=== PATIENT | male | born 1990 | race African-American/Black ===

== ENCOUNTER 2021-01-30 22:29 | Emergency (ER) | payer OTHER ==
--- NOTE | 2021-01-31 01:06 | ED Physician Documentation ---
History of Present Illness - Stated complaint Stated Complaint: ABD PX - Chief complaint Chief Complaint: General - History obtained from History obtained from: Patient - Additonal information Additional information: Patient comes emergency department chief complaint of excess stooling for the last several days. Patient states that he was traveling 5 days ago and that a bottle of shaving cream spilled in his bag. He thought it might have contaminated his food and caused some digestive upset. He states that he began to have very frequent stools, about 6 times a day, and he is concerned that nilson ething is wrong with his bowels. He states that the stools of normal consistency, but he keeps feeling the urge to go. He states that sometimes the bowel movements are of normal size and sometimes they are of smaller size. No diarrhea. No fevers. Patient has had some chills intermittently and had an episode of right flank and back pain yesterday. He states this resolved on its own. No other complaints at this time. No abdominal pain. No dysuria. Review of Systems Ten Systems: 10 systems reviewed and negative Constitutional: reports: Reviewed and negative Eyes: reports: Reviewed and negative Ears: reports: Reviewed and negative Nose: reports: Reviewed and negative Throat: reports: Reviewed and negative Cardiac: reports: Reviewed and negative Respiratory: reports: Reviewed and negative GI: reports: Other (Stool changes). denies: Abdominal Pain, Nausea : reports: Reviewed and negative. denies: Dysuria Skin: reports: Reviewed and negative Musculoskeletal: reports: Reviewed and negative Neurologic: reports: Reviewed and negative Psychiatric: reports: Reviewed and negative Endocrine: reports: Reviewed and negative Immunocompromised: reports: Reviewed and negative PD PAST MEDICAL HISTORY - Past Medical History Past Medical History: No Cardiovascular: None Respiratory: None Neuro: None Endocrine/Autoimmune: None GI: None : None HEENT: None Psych: None Musculoskeletal: None Derm: None - Past Surgical History Past Surgical History: No - Present Medications Home Medications: Ambulatory Orders Medication Instructions Recorded Confirmed No Known Home Medications 01/30/21 01/30/21 - Allergies Allergies/Adverse Reactions: Allergies Allergy/AdvReac Type Severity Reaction Status Date / Time No Known Drug Allergies Allergy Verified 01/31/21 00:01 - Social History Does the pt smoke?: No Smoking Status: Never smoker Does the pt drink ETOH?: No Does the pt have substance abuse?: No - Immunizations Immunizations are current?: Yes - POLST Patient has POLST: No PD ED PE NORMAL - Vitals Vital signs reviewed: Yes - General General: Alert and oriented X 3, No acute distress, Well developed/nourished - HEENT HEENT: Atraumatic, PERRL, EOMI, Moist mucous membranes - Neck Neck: Supple, no meningeal sign - Cardiac Cardiac: RRR, No murmur - Respiratory Respiratory: No respiratory distress, Clear bilaterally - Abdomen Abdomen: Soft, Non tender, Non distended - Back Back: No CVA TTP, No spinal TTP - Derm Derm: Normal color, Warm and dry, No rash - Extremities Extremities: No deformity, No edema, No calf tenderness / cord - Neuro Neuro: Alert and oriented X 3 - Psych Psych: Normal mood, Normal affect Results - Vitals Vitals: Vital Signs - 24 hr 01/30/21 01/31/21 01/31/21 22:51 00:14 01:22 Temperature 36.6 C 36.6 C Heart Rate 60 60 Respiratory 16 16 18 Rate Blood Pressure 141/87 H 149/97 H O2 Saturation 100 100 Oxygen O2 Source Room air - Labs Labs: Laboratory Tests 01/31/21 01:10 Urine Color YELLOW Urine Clarity CLEAR Urine pH 6.0 Ur Specific [place] 1.015 Urine Protein NEGATIVE Urine Glucose (UA) NEGATIVE Urine Ketones NEGATIVE Urine Occult Blood NEGATIVE Urine Nitrite NEGATIVE Urine Bilirubin NEGATIVE Urine Urobilinogen 0.2 (NORMAL) Ur Leukocyte Esterase NEGATIVE Ur Microscopic Review NOT INDICATED Urine Culture Comments NOT INDICATED PD MEDICAL DECISION MAKING - ED course Complexity details: reviewed results, re-evaluated patient, considered differential, d/w patient ED course: I discussed with the patient the really not sure what to make of his symptoms. He does not seem to have anything emergent going on, but I have sent both urine and stool samples for analysis. Urinalysis was negative. The patient produced enough stool to test for norovirus, but is advised [place] wishes any further evaluation. I discussed with him that he is making normal stool but just more frequently and that I feel this is most likely going to blow over on its own. We have discussed dietary considerations and the usual indications for return. Departure - Departure Disposition: 01 Home, Self Care Clinical Impression: Altered bowel habits Condition: Stable Instructions: ED IBS Comments: Your urinalysis is negative. Your stool studies are pending at this time, and will not be back tonight. Most likely, given that you do not have actual diarrhea or otherwise feeling fairly well, your symptoms will blow over on their own, given time. Please eat a high-fiber diet and drink plenty of fluids. Please follow-up with your primary care physician for further concerns regarding your symptoms. Discharge Date/Time: 01/31/21 01:43
[2021-01-31 01:14] LABS: BILIRUBIN,URINE NEGATIVE (NEGATIVE); GLUCOSE, URINE (UA) NEGATIVE (NEGATIVE); KETONES,URINE (UA) NEGATIVE (NEGATIVE); LEUKOCYTE ESTERASE, URINE NEGATIVE (NEGATIVE); NITRITE,URINE NEGATIVE (NEGATIVE); OCCULT BLOOD,URINE NEGATIVE (NEGATIVE); PROTEIN,URINE NEGATIVE (NEGATIVE); UROBILINOGEN,URINE 0.2 (NORMAL) E.U./dL (NORMAL)
[2021-01-31 01:21] LABS: CLARITY,URINE CLEAR (CLEAR)
[2021-01-31 01:23] VITALS: BP 149/97
== END 2021-01-31 01:43 | disposition home or self-care (01) ==
LOC: ED 22:29
DX: R19.4 Change in bowel habit (principal)
CPT/HCPCS: 81001; 81003; 87045; 87046; 87086; 87798; 99282; 99283

== ENCOUNTER 2021-02-05 20:40 | Emergency (ER) | payer OTHER ==
[2021-02-05 20:55] LABS: BASOPHILS % (AUTO) 0.9 %; EOSINOPHILS # (AUTO) 0.1 10^3/uL (0.0-0.7); EOSINOPHILS % (AUTO) 1.1 %; HGB - HEMOGLOBIN 13.4 g/dL (14.0-18.0); LYMPHOCYTES # (AUTO) 2.2 10^3/uL (1.5-3.5); LYMPHOCYTES % (AUTO) 47.9 %; MEAN CORPUSCULAR HEMOGLOBIN 23.6 pg (27.0-31.0); MEAN CORPUSCULAR HGB CONC 30.5 g/dL (32.0-36.0); MEAN CORPUSCULAR VOLUME 77.5 fL (80.0-94.0); MEAN PLATELET VOLUME 9.9 fL (7.4-11.4); MONOCYTES # (AUTO) 0.4 10^3/uL (0.0-1.0); MONOCYTES % (AUTO) 7.8 %; NEUTROPHILS % (AUTO) 42.1 %; PLT - PLATELET COUNT 207 10^3/uL (130-450); RED BLOOD COUNT 5.68 10^6/uL (4.70-6.10); RED CELL DISTRIBUTION WIDTH 12.5 % (12.0-15.0); WHITE BLOOD COUNT 4.6 x10^3/uL (4.8-10.8)
[2021-02-05 21:09] LABS: ALBUMIN 4.6 g/dL (3.2-5.5); ALBUMIN/GLOBULIN RATIO 1.4 (1.0-2.2); BILIRUBIN,TOTAL 0.7 mg/dL (0.2-1.0); CALCIUM 9.7 mg/dL (8.5-10.3); CREATININE 1.2 mg/dL (0.6-1.2); POTASSIUM 3.9 mmol/L (3.5-5.0); TOTAL PROTEIN 7.9 g/dL (6.7-8.2)
[2021-02-05] MEDS ORDERED: IOPAMIDOL-300 100 ML VIAL ONE (21:15)
--- NOTE | 2021-02-05 21:15 | ED Physician Documentation ---
History of Present Illness - Stated complaint Stated Complaint: BOWEL PX - Chief complaint Chief Complaint: Abd Pain - Additonal information Additional information: 30-year-old male presents the emergency department for evaluation of painful defecation. He reports that about 1 week ago he had a few bouts of watery diarrhea over the last week he has been having multiple soft but not loose bowel movements a day up to 6. He states that he was trying to hold his bowel movements in because he did not want to defecate that much. Today as he was defecating he reports straining forcefully and feeling a pain radiating from his rectum down to the toes in his left leg. He denies any has been having melena or hematochezia. No history of similar in the past. He was seen in this ER on the for bowel irregularity. Stool and urine test ing was negative at that time. Patient denies any fevers or vomiting. No pertinent past surgical history of the abdomen. Review of Systems Constitutional: denies: Fever, Chills Eyes: reports: Reviewed and negative Nose: reports: Reviewed and negative Throat: reports: Reviewed and negative Cardiac: reports: Reviewed and negative Respiratory: reports: Reviewed and negative GI: reports: Diarrhea. denies: Abdominal Pain, Nausea, Vomiting, Hematemesis, Bloody / black stool : reports: Reviewed and negative Skin: reports: Reviewed and negative PD PAST MEDICAL HISTORY - Past Medical History Cardiovascular: None Respiratory: None Neuro: None Endocrine/Autoimmune: None GI: None : None HEENT: None Psych: None Musculoskeletal: None Derm: None - Past Surgical History Past Surgical History: No - Present Medications Home Medications: Ambulatory Orders Medication Instructions Recorded Confirmed polyethylene glycoL 3350 [Miralax] 17 gm PO DAILY PRN #1 bottle 02/05/21 - Allergies Allergies/Adverse Reactions: Allergies Allergy/AdvReac Type Severity Reaction Status Date / Time No Known Drug Allergies Allergy Verified 02/05/21 20:43 - Social History Does the pt smoke?: No Smoking Status: Never smoker Does the pt drink ETOH?: No Does the pt have substance abuse?: No - Immunizations Immunizations are current?: Yes - POLST Patient has POLST: No PD ED PE NORMAL - General General: Alert and oriented X 3, No acute distress - Neck Neck: Supple, no meningeal sign - Cardiac Cardiac: RRR, No murmur - Respiratory Respiratory: Clear bilaterally - Abdomen Abdomen: Normal bowel sounds, Soft, Non tender, Non distended - Rectal Rectal: Other (Chaperoned rectal exam reveals no obvious hemorrhoids or anal fissures. No perirectal tenderness elicited. Brown stool in the vault.) Results - Vitals Vitals: Vital Signs - 24 hr 02/05/21 20:43 Temperature 36.5 C Heart Rate 60 Respiratory 16 Rate Blood Pressure 140/98 H O2 Saturation 100 Oxygen O2 Source Room air - Labs Labs: Laboratory Tests 02/05/21 02/05/21 02/05/21 20:52 20:52 21:05 WBC 4.6 L RBC 5.68 Hgb 13.4 L Hct 44.0 MCV 77.5 L MCH 23.6 L MCHC 30.5 L RDW 12.5 Plt Count 207 MPV 9.9 Neut # (Auto) 2.0 Lymph # (Auto) 2.2 [place] # (Auto) 0.4 Eos # (Auto) 0.1 Baso # (Auto) 0.0 Absolute Nucleated RBC 0.00 Nucleated RBC % 0.0 Sodium 141 Potassium 3.9 Chloride 103 Carbon Dioxide 29 Anion Gap 9.0 BUN 12 Creatinine 1.2 Estimated GFR (MDRD) 87 L Glucose 83 Calcium 9.7 Total Bilirubin 0.7 AST 25 ALT 20 Alkaline Phosphatase 63 Total Protein 7.9 Albumin 4.6 Globulin 3.3 Albumin/Globulin Ratio 1.4 Lipase 40 Urine Color YELLOW Urine Clarity CLEAR Urine pH 7.0 Ur Specific [place] <=1.005 Urine Protein NEGATIVE Urine Glucose (UA) NEGATIVE Urine Ketones NEGATIVE Urine Occult Blood NEGATIVE Urine Nitrite NEGATIVE Urine Bilirubin NEGATIVE Urine Urobilinogen 0.2 (NORMAL) Ur Leukocyte Esterase NEGATIVE Ur Microscopic Review NOT INDICATED Urine Culture Comments NOT INDICATED - Rads (name of study) CT abd Radiology: Final report received (Generalized colonic obstipation on the right and left within the abdomen and pelvis. This extends into the rectum. No perirectal abscess, no perianal abscess is found.) PD MEDICAL DECISION MAKING - ED course Complexity details: reviewed results, d/w patient ED course: 30-year-old male presents the emergency department for evaluation of bowel irregularity and painful defecation. This began with a bout of diarrhea about 1 week ago. He reports that since then he has been trying to avoid pooping as he doesn't think he should be pooping this much in addition to that as he has been straining to have a bowel movement today he noted pain that radiated down his left leg. Screening labs are unremarkable. A CT of the abdomen does show significant obstipation in both the ascending and descending colon. There were no findings of perirectal or perianal abscess. CT findings were discussed with the patient at length. He has been avoiding ever having bowel movements and now seems constipated resulting in rectal pain. I will recommend that he fill prescription for MiraLAX and take once twice daily as directed till he has 3-4 watery bowel movements. Patient is to follow-up tomorrow with [facility]. Emergent return precautions were discussed for fevers, suddenly severe abdominal pain hematochezia or melena. Departure - Departure Disposition: 01 Home, Self Care Clinical Impression: Rectal pain Constipation Qualifiers: Constipation type: other constipation type Qualified Code(s): K59.09 - Other constipation Condition: Stable Record reviewed to determine appropriate education?: Yes Instructions: ED Constipation Prescriptions: polyethylene glycoL 3350 [Miralax] 17 gm PO DAILY PRN #1 bottle PRN Reason: Constipation Comments: Panchito you're seen in the ER today for irregular bowel movements over the last week as well as rectal pain that radiates down your leg with defecation. Your screening labs were essentially normal today. We did do a CAT scan of your belly that does show significant constipation in both your ascending and descending colon. Avoiding having bowel movements has likely worsened your constipation. I would like you to fill the prescription for the MiraLAX and take once or twice daily as directed until you have 3-4 watery bowel movements. I would expect that once you have some relief of your constipation this rectal pain that should improve. Please schedule follow-up with [facility] in the next 48 to 72 hours. Return to the ER if you have any fevers, if you have black or bloody bowel movements or suddenly severe or different abdominal pain.
[2021-02-05 21:16] LABS: BILIRUBIN,URINE NEGATIVE (NEGATIVE); GLUCOSE, URINE (UA) NEGATIVE (NEGATIVE); KETONES,URINE (UA) NEGATIVE (NEGATIVE); LEUKOCYTE ESTERASE, URINE NEGATIVE (NEGATIVE); NITRITE,URINE NEGATIVE (NEGATIVE); OCCULT BLOOD,URINE NEGATIVE (NEGATIVE); PROTEIN,URINE NEGATIVE (NEGATIVE); UROBILINOGEN,URINE 0.2 (NORMAL) E.U./dL (NORMAL)
[2021-02-05 21:18] LABS: CLARITY,URINE CLEAR (CLEAR)
--- NOTE | 2021-02-05 21:58 | CT Report ---
PROCEDURE: Abdomen/Pelvis W INDICATIONS: rectal pain with defication: ? abscess CONTRAST: IV CONTRAST: Isovue 300 ml: 100 PO CONTRAST: *NO PO CONTRAST TECHNIQUE: After the administration of gas gas contrast, 5 mm thick sections acquired from the diaphragms to the symphysis. 5 mm thick coronal and sagittal reformats were acquired. For radiation dose reduction, the following was used: automated exposure control, adjustment of mA and/or kV according to patient size. COMPARISON: None. FINDINGS: Image quality: Excellent. ABDOMEN: Lung bases: Lung bases are clear. Heart size is normal. Solid organs: Liver and spleen are normal in size and enhancement. Gallbladder appears normal Bili pippa system is non dilated. Pancreas enhances normally. No adrenal nodules. Kidneys demonstrate nor mal size and enhancement, without hydronephrosis. Peritoneum and bowel: Bowel loops demonstrate normal wall thickness and caliber. There is general ri ght and left abdomen and pelvis colonic obstipation No free fluid or air. Nodes and vessels: No retroperitoneal or mesenteric adenopathy by size criteria. Aorta and inferior vena cava are normal in size. Miscellaneous: No ventral hernias. PELVIS: Genitourinary: Bladder wall thickness is normal. Miscellaneous: No inguinal hernias or adenopathy. Generalized colonic obstipation extending into th e rectum. Bones: No suspicious bony lesions. No vertebral body compression fractures. IMPRESSION: No perirectal abscess, no perianal abscess is found. Please note that occasionally MR sc anning with contrast can provide tissue detail that allows identification of a perianal inflammatory process not clearly visualized by CT scanning. However, the current study is considered entirely norm al in this region. Generalized colonic obstipation on the right and the left, within the abdomen and pelvis. This extend s into the rectum. Reviewed by: Jalen Gutiérrez MD on 02/05/2021 9:57 PM PDT Approved by: Jalen Gutiérrez MD on 02/05/2021 9:57 PM PDT Station ID: [id number]
[2021-02-05] MEDS ORDERED: IOPAMIDOL-300 100 ML VIAL IVP ONE (22:05)
[2021-02-05 22:25] VITALS: BP 121/59
== END 2021-02-05 22:25 | disposition home or self-care (01) ==
LOC: ED 20:40
DX: K62.89 Other specified diseases of anus and rectum (principal); K59.09 Other constipation
CPT/HCPCS: 36415; 74177; 80053; 81003; 83690; 85025; 99284; Q9967; 81001; 87086

== ENCOUNTER 2023-02-05 17:14 | Emergency (ER) | payer OTHER ==
--- NOTE | 2023-02-05 17:37 | ED Physician Documentation ---
PD HPI CHEST PAIN - Stated complaint Stated Complaint: THROAT PX - Chief complaint Chief Complaint: Heent - History obtained from History obtained from: Patient - Additional information Additional information: 32-year-old otherwise healthy gentleman presents with a chief complaint of a months worth of progressive throat pain. A sharp feeling near the left vallecula that is worse at night. It is not associated with congestion or URI symptoms. He states it started about a month ago. He was just driving and he felt like something got stuck in his throat. He was not eating at the time. He also has an ancillary complaints of several years worth of intermittent chest pain. He feels like his chest is expanding generally after drinking coffee. He is stopped drinking coffee and that has been very helpful and it is happening less but still happening on occasion. He denies exercise intolerance. No pedal edema or calf pain. No weight loss. PD PAST MEDICAL HISTORY - Past Medical History Cardiovascular: None Respiratory: None Neuro: None Endocrine/Autoimmune: None GI: None : None HEENT: None Psych: None Musculoskeletal: None Derm: None - Past Surgical History Past Surgical History: No - Present Medications Home Medications: Ambulatory Orders Medication Instructions Recorded Confirmed polyethylene glycoL 3350(BULK) 17 gm PO DAILY PRN #1 bottle 02/05/21 02/03/22 [Miralax] Docusate Sodium 250Mg Capsule 250 mg PO DAILY #30 cap 02/03/22 [Colace 250Mg Capsule] Hydrocortisone [Anusol-Hc] 30 gm RC BID #1 gm 02/03/22 Psyllium [Metamucil] 1 each PO DAILY #30 packet 02/03/22 Omeprazole 40 mg PO DAILY #30 cap 02/05/23 - Allergies Allergies/Adverse Reactions: Allergies Allergy/AdvReac Type Severity Reaction Status Date / Time No Known Drug Allergies Allergy Verified 02/05/23 17:21 - Social History Does the pt smoke?: No Smoking Status: Never smoker Does the pt drink ETOH?: Yes Does the pt have substance abuse?: No - Immunizations Immunizations are current?: Yes - POLST Patient has POLST: No PD ED PE NORMAL - Vitals Vital signs reviewed: Yes - General General: Alert and oriented X 3, No acute distress - HEENT HEENT: PERRL, EOMI, Other (Visualized portions of the oropharynx are normal. Ph onation is normal. Palpation of the anterior neck is unremarkable.) - Neck Neck: Supple, no meningeal sign, No bony TTP - Cardiac Cardiac: RRR, No murmur - Respiratory Respiratory: No respiratory distress, Clear bilaterally - Abdomen Abdomen: Non tender - Neuro Neuro: Alert and oriented X 3, Normal speech - Psych Psych: Normal mood, Normal affect Results - Vitals Vitals: Vital Signs - 24 hr 02/05/23 02/05/23 17:21 19:32 Temperature 36.5 C Heart Rate 60 63 Respiratory 16 16 Rate Blood Pressure 140/77 H 130/76 O2 Saturation 100 99 Oxygen O2 Source Room air - EKG (time done) 4369 EKG releavant findings:: EKG personally interpreted by author of this note. Relevant findings are: Rate: Rate (enter#) (61) Rhythm: NSR [place]: Normal Intervals: Normal MT QRS: Normal Ischemia: ST elevation c/w repol - Labs Labs: Laboratory Tests 02/05/23 02/05/23 18:05 18:05 WBC 4.2 L RBC 5.31 Hgb 12.4 L Hct 41.0 L MCV 77.2 L MCH 23.4 L MCHC 30.2 L RDW 13.0 Plt Count 190 MPV 10.3 Neut # (Auto) 1.8 Lymph # (Auto) 2.0 [place] # (Auto) 0.4 Eos # (Auto) 0.0 Baso # (Auto) 0.0 Absolute Nucleated RBC 0.00 Nucleated RBC % 0.0 Sodium 138 Potassium 3.7 Chloride 105 Carbon Dioxide 29 Anion Gap 4.0 L BUN 15 Creatinine 1.3 Estimated GFR (MDRD) 79 L Glucose 85 Calcium 9.4 Total Bilirubin 0.3 AST 19 ALT 18 Alkaline Phosphatase 57 Troponin I High Sens 3.2 Total Protein 7.1 Albumin 4.2 Globulin 2.9 Albumin/Globulin Ratio 1.4 - Rads (name of study) 2 view chest x-ray is unremarkable Relevant Findings:: Final report received, EMP independent interpretation of test Soft tissue neck CT was unremarkable Relevant Findings:: Final report received, EMP independent interpretation of test PD Medical Decision Making - ED course ED course: 32-year-old gentleman who presents with progressive left-sided throat pain, he points near the left vallecula as the site of pain. Discussed with him that the most appropriate next test would probably be nasolaryngoscopy performed by an ENT but he would like some information today so settled on doing a CT. He also wanted some sort of work-up on his 3 years of intermittent chest pain made worse by coffee and chest x-ray and EKG are ordered. Work-up in the emergency department consisted of a CBC was showing mild microcytic anemia, normal CMP. Nonischemic EKG, negative troponin. Chest x- ray, soft tissue neck CT negative. We will trial a PPI pending follow-up with ENT for consideration for nasolaryngoscopy. Departure - Departure Disposition: Home, Self Care Clinical Impression: Neck pain Condition: Good Record reviewed to determine appropriate education?: Yes Prescriptions: Omeprazole 40 mg PO DAILY #30 cap Comments: Chest x-ray and EKG were unremarkable. You do a very mild anemia. Discuss this with your primary care physician. The CAT scan of your neck was normal/negative, but as discussed you will probably still need a nasolaryngoscopy and an evaluation by an ear nose and throat physician. The closest is in [place], the phone number is [phone]. Call tomorrow for the next available appointment. Given that it is worse at night, 1 possibility for diagnosis would be reflux with acid coming up and irritating her throat and as such it is reasonable to trial an antacid medication and 1 is prescribed. Forms: PCP List Discharge Date/Time: 02/05/23 19:33
[2023-02-05 18:11] LABS: BASOPHILS % (AUTO) 0.7 %; EOSINOPHILS % (AUTO) 0.9 %; HGB - HEMOGLOBIN 12.4 g/dL (14.0-18.0); LYMPHOCYTES % (AUTO) 46.1 %; MEAN CORPUSCULAR HEMOGLOBIN 23.4 pg (27.0-31.0); MEAN CORPUSCULAR HGB CONC 30.2 g/dL (32.0-36.0); MEAN CORPUSCULAR VOLUME 77.2 fL (80.0-94.0); MEAN PLATELET VOLUME 10.3 fL (7.4-11.4); MONOCYTES # (AUTO) 0.4 10^3/uL (0.0-1.0); MONOCYTES % (AUTO) 9.5 %; NEUTROPHILS # (AUTO) 1.8 10^3/uL (1.5-6.6); NEUTROPHILS % (AUTO) 42.6 %; PLT - PLATELET COUNT 190 10^3/uL (130-450); RED BLOOD COUNT 5.31 10^6/uL (4.70-6.10); WHITE BLOOD COUNT 4.2 x10^3/uL (4.8-10.8)
[2023-02-05 18:25] LABS: ALBUMIN 4.2 g/dL (3.2-5.5); ALBUMIN/GLOBULIN RATIO 1.4 (1.0-2.2); BILIRUBIN,TOTAL 0.3 mg/dL (0.2-1.0); CALCIUM 9.4 mg/dL (8.5-10.3); CREATININE 1.3 mg/dL (0.6-1.3); POTASSIUM 3.7 mmol/L (3.5-4.5); TOTAL PROTEIN 7.1 g/dL (6.4-8.9)
[2023-02-05 18:30] LABS: TROPONIN I HIGH SENSITIVITY 3.2 ng/L (2.3-19.7)
--- NOTE | 2023-02-05 18:40 | XRAY Report ---
PROCEDURE: Chest 2 View X-Ray INDICATIONS: CP TECHNIQUE: 2 views of the chest were acquired. COMPARISON: None. FINDINGS: Surgical changes and devices: None. Lungs and pleura: No pleural effusions or pneumothorax. Lungs are clear. Mediastinum: Mediastinal contours appear normal. Heart size is normal. Bones and chest wall: No suspicious bony lesions. Overlying soft tissues appear unremarkable. IMPRESSION: No acute cardiopulmonary process. Reviewed by: Salas Washington on 02/05/2023 6:39 PM PDT Approved by: Salas Washington on 02/05/2023 6:39 PM PDT Station ID: [id number]
[2023-02-05] MEDS ORDERED: iohexoL-300 100 ML VIAL IVP ONE (19:04)
--- NOTE | 2023-02-05 19:20 | CT Report ---
PROCEDURE: SOFT TISSUE NECK W INDICATIONS: Left neck pain progressive CONTRAST: Omni 300 TECHNIQUE: After the administration of intravenous contrast, 3.0 mm axial sections acquired from the sella to th e aortic arch. Additional oblique axial 3.0 mm sections acquired through the pharynx. 3 mm thick co rhiannon reformats were generated. For radiation dose reduction, the following was used: automated exp osure control, adjustment of mA and/or kV according to patient size. COMPARISON: None. FINDINGS: Image quality: Excellent. Lymph nodes: No enlarged lymph nodes seen throughout the neck. Vessels: Visualized vasculature appears patent. Neck spaces: The oropharynx, nasopharynx, and pharynx demonstrate no mucosal lesions. The vocal cor ds, false vocal cords, pyriform sinuses, epiglottis, vallecula, and tongue base all appear normal. E xtramucosal spaces appear unremarkable. Glands: The parotid and submandibular glands appear normal. The thyroid is normal in size and there are no incidental findings. Miscellaneous: Visualized brain and orbits appear normal. Lung apices appear clear. Superficial so ft tissues appear normal. Bones: No suspicious bony lesions. Visualized sinuses and mastoids appear unremarkable. IMPRESSION: Normal neck CT. CLINICAL RECOMMENDATION STATEMENTS: In patients <35 years with an ITN detected on CT, MRI, or extrathyroidal ultrasound, the Committee re commends further evaluation with dedicated thyroid ultrasound if the nodule is "e1 cm and has no susp icious imaging features, and if the patient has normal life expectancy. In patients "e35 years with an ITN detected on CT, MRI, or extrathyroidal ultrasound, the Committee r ecommends further evaluation with dedicated thyroid ultrasound if the nodule is "e1.5 cm and has no s uspicious imaging features, and if the patient has normal life expectancy. (ACR, 2014) Reviewed by: Salas Washington on 02/05/2023 7:19 PM PDT Approved by: Salas Washington on 02/05/2023 7:19 PM PDT Station ID: [id number]
[2023-02-05 19:35] VITALS: BP 130/76; O2SAT 99
== END 2023-02-05 19:33 | disposition home or self-care (01) ==
LOC: ED 17:14
DX: R07.0 Pain in throat (principal); D50.9 Iron deficiency anemia, unspecified
CPT/HCPCS: 36415; 70491; 71046; 80053; 84484; 85025; 93005; 99284; Q9967